=== PATIENT | female | born 1995 | race Caucasian/White ===

== ENCOUNTER 2021-07-18 21:02 | Emergency (ER) | payer SELFPAY ==
[2021-07-18 21:06] VITALS: BP 144/67; PULSE 95; RESP 16; TEMP 36.3; O2SAT 99
--- NOTE | 2021-07-18 21:26 | ED.GENADUL_ITS ---
Discharge Plan Disposition Patient Disposition: HOME Condition: Stable Discharge Details Clinical Impression: Nausea vomiting and diarrhea Primary Care Provider: None,None ED Provider: Oneal Resendiz Home Meds and New Rx's Prescriptions: New ondansetron 4 mg tablet,disintegrating 4 mg PO Q8H PRN (Reason: nausea and vomiting) Qty: 30 0RF Discharge Instructions Instructions: Acute Nausea and Vomiting (ED) Additional Instructions: you are likely suffering froma stomache virus that will resolve in a few days take small frequent sips of water to stay hydrated if you develop persistent vomit despite the medication, severe pain or feel more ill return to the emergency department Medical Decision Making 25 yo female who denies chronic medical problems, denies alcohol or drug use, comes in with n/v and diarrhea starting this morning. She denies any recent travel, new foods, fevers, chills. She has had abdominal cramping as well but denies pain. She arrives stable speaking in full sentences. She has a soft nontender abdomen on exam. Given the n/v with diarrhea suspect food related illness vs viral gastroenteritis, given lack of tenderness on exam doubt surgical pathology such as sbo and do not feel abdominal imaging indicated. Will treat her symptoms with zofran and give fluids and check for electrolyte abnorm alities and reassess. Patient with mild leukocytosis, no significant electrolyte abnormality. She is feeling significantly better and still has no abdominal tenderness so do not feel ct imaging indicated. She is tolerating po now and feels well enough for discharge and is stable for discharge. Will provide prn zofran and return precautions given Differential Diagnosis Differential Diagnosis: food illness, gastroenteritis Lab Data Lab results reviewed: Yes I reviewed the patient's lab results. HPI General Mode of arrival: ambulatory . Date/Time Provider Initiated Documentation: 07/18/21 21:08 . Limitations to Documentation: no limitations . Information obtained by: patient . History of Present Illness 25 year old F presents to the emergency department with the chief complaint of n/v, described as moderate, Patient started experiencing this day(s) (1) and it has been intermittent. improves with No relieving factors improve symptom(s), No exacerbating factors reported . Patient notes other (diarrhea). Patient did receive the following treatments prior to arrival, none Related Data Home Medications Medication Instructions Recorded Confirmed ondansetron 4 mg disintegrating 4 mg PO Q8H PRN #30 tab 07/18/21 tablet Previous Rx's Medication Instructions Recorded ondansetron 4 mg disintegrating 4 mg PO Q8H PRN #30 tab 07/18/21 tablet Allergies Allergy/AdvReac Type Severity Reaction Status Date / Time No Known Allergies Allergy Unverified 07/18/21 21:08 General Stated Complaint: Nausea/Vomit/Diar MANFRED: 3 Review of Systems All systems reviewed & are unremarkable except as noted in HPI and below Constitutional Constitutional: Denies chills, Denies fever(s) and Denies weakness Cardiovascular Cardiovascular: Denies chest pain and Denies dyspnea Respiratory Respiratory: Denies cough and Denies dyspnea Gastrointestinal Gastrointestinal: Denies abdominal pain Genitourinary Genitourinary: Denies dysuria Integumentary/Breasts Skin/Breast: Denies rash Neurologic Neurologic: Denies weakness Psychiatric Psychiatric: Denies depression PFSH All Active Problems (Updated 07/18/21 @ 22:54 by Oneal Resendiz MD) Pharyngitis, acute (Acute) Nausea vomiting and diarrhea (Acute) Social History Smoking/Tobacco Use Status: Never Smoking risk assessment performed?: Yes Alcohol Intake: never Drug use: Never Substance use type: does not use Do you feel safe at home: Yes Do you feel safe in your relationship?: Yes Exam Const General: no acute distress Orientation: alert HENMT Head: normal to inspection Ears: external ears normal General nose exam: external nose normal Mouth: moist mucous membranes Eyes General: appearance normal, both eyes and all related structures Neck Neck: normal visual inspection Resp Effort & Inspection: normal respiratory effort and able to speak in complete sentences Cardio Rate: regular rate GI Palpation: soft and nontender Skin General skin exam: no rashes or lesions noted Neuro General: patient alert and patient oriented x3 Extrem General: normal to inspection Psych Mental Status: mental status grossly normal Course Vital Signs Vital signs: Vital Signs Temperature 36.3 C L 07/18/21 21:06 Pulse 95 H 07/18/21 21:06 Respiratory Rate 16 07/18/21 21:06 Blood Pressure 144/67 H 07/18/21 21:06 Pulse Oximetry 99 07/18/21 21:06 Temperature 36.3 C L 07/18/21 21:06 Pulse 95 H 07/18/21 21:06 Respiratory Rate 16 07/18/21 21:06 Respiratory Effort Non-Labored 03/27/22 21:09 Blood Pressure 144/67 H 07/18/21 21:06 Pulse Oximetry 99 07/18/21 21:06 Pain Level 6 07/18/21 21:06
[2021-07-18] MEDS: Normal Saline 1,000 ML 1000 ML IV (21:40)
[2021-07-18] MEDS: Ondansetron 4 MG/2 ML VIAL IVP (21:41)
[2021-07-18 21:47] LABS: Bilirubin Small (Negative); Blood Moderate (Negative); Clarity Sl Cloudy (Clear); Glucose Negative (Negative); Ketones 80 mg/dL (Negative); Leukocyte Esterase Negative (Negative); Nitrite Negative (Negative); Specific Gravity >= 1.030 (1.005-1.025); Urobilinogen 0.2 EU/dL (Up TO 0.2); pH 5.5 (5-8)
[2021-07-18 21:48] LABS: Abs Immature Grans 0.03 10^3/uL (0.0-0.06); Absolute Eosinophil Count 0.01 10^3/uL (0.0-0.7); Absolute Monocyte Count 0.79 10^3/uL (0.1-0.8); Basophils % 0.5; Eosinophils % 0.1; HCT 48.1 % (36.0-46.0); HGB 16.9 g/dL (11.2-15.7); Immature Grans % 0.2; Lymphocytes % 6.2; MCH 31.8 pg (27.0-33.0); MCHC 35.1 % (32.0-36.0); MCV 90.6 fL (80-95); MPV 11.3 fL (8.0-11.0); Monocytes % 6.1; Neutrophils % 86.9; Nucleated RBC 0 %; Platelet Count 245 10^3/uL (130-400); RBC 5.31 10^6/uL (3.93-5.22); RDW 11.2 % (11.7-14.6); RDW-SD 37.5 fL; WBC 12.87 10^3/uL (4.4-10.8)
[2021-07-18 21:51] LABS: Absolute Basophil Count 0.06 10^3/uL (0.0-0.2); Absolute Neutrophil Count 11.18 10^3/uL (1.2-6.7)
[2021-07-18 22:02] LABS: Bacteria Moderate HPF (Negative); C & S Indicated? No/Sq. Contamination; Casts Negative LPF (Negative); Crystals Negative HPF (Negative); Epithelial Cells Many HPF (Negative); Mucus Moderate (Negative); WBC 0-2 HPF (0-5)
[2021-07-18 22:03] LABS: ALT 22 U/L (14-59); AST 16 U/L (15-37); Albumin 5.3 g/dL (3.4-5.0); Alkaline Phosphatase 73 U/L (46-116); Anion Gap 12.2 mmol/L (3-11); BUN 12 mg/dL (7-18); Bilirubin, Total 1.3 mg/dL (0.2-1.0); CO2 25.8 mmol/L (21.0-32.0); CREATININE 0.9 mg/dL (0.55-1.02); Calcium 9.4 mg/dL (8.5-10.1); Chloride 105 mmol/L (98-107); Glucose 113 mg/dL (74-106); Lipase 51 U/L (73-393); Potassium 4.3 mmol/L (3.5-5.1); Sodium 143 mmol/L (136-145); Total Protein 8.6 g/dL (6.4-8.2)
[2021-07-18 23:26] VITALS: BP 114/65; PULSE 78; RESP 14; TEMP 36.7; O2SAT 97
[2021-07-18] MEDS: Ondansetron O.D.T. 4 MG TABEF, 3 TABS/BTL PO (23:26)
== END 2021-07-18 23:40 | disposition home or self-care (01) ==
PROVIDERS: Emergency Provider Emergency Medicine
DX: R11.2 Nausea with vomiting, unspecified (principal); R19.7 Diarrhea, unspecified
CPT/HCPCS: 80053; 81025; 83690; 96361; 96374; 99284; 81003; 81015; 83735; 85025; 99283; J2405

== ENCOUNTER 2022-03-15 02:50 | Outpatient (CLI) | payer MEDICAID, SELFPAY ==
--- NOTE | 2022-03-15 11:00 | PAPFT_PTH ---
PATIENT: Last Newell LOC: [facility] U#:[id number] AGE/SX: 26/F ROOM: RE03/15/[address]: Lorena Rice CNM : 1995 BED: DIS: 03/15/2022 SPEC #: [id number] RECD: 03/15/22 13:04 STATUS: LARISSA OSULLIVAN #: [id number] SUSANNAH: 03/15/22 11:[address]: Lorena Rice DEPT: [facility], [facility] Cytology RECD BY: Stacy Ferreira ENTERED: 03/15/22 13:04 SP TYPE: PAPFT FLO DR: None Tissues: 1 - CX/ENDOCX FOR PAP SMEARS Procedures: PAP THIN PREP/[facility] Screening Comments: [id number] (CHLAMYDIA/GC)
[2022-03-15 12:10] LABS: Panorama Kit Sent via Fed Ex
[2022-03-15 12:27] LABS: Abs Immature Grans 0.05 10^3/uL (0.0-0.06); Absolute Basophil Count 0.05 10^3/uL (0.0-0.2); Absolute Eosinophil Count 0.13 10^3/uL (0.0-0.7); Absolute Monocyte Count 0.73 10^3/uL (0.1-0.8); Basophils % 0.4; Eosinophils % 1.1; HCT 39.3 % (36.0-46.0); HGB 13.9 g/dL (11.2-15.7); Immature Grans % 0.4; Lymphocytes % 15.2; MCH 32.7 pg (27.0-33.0); MCHC 35.4 % (32.0-36.0); MCV 93 fL (80-95); MPV 10.5 fL (8.0-11.0); Neutrophils % 76.9; Platelet Count 259 10^3/uL (130-400); RBC 4.25 10^6/uL (3.93-5.22); RDW 11.8 % (11.7-14.6); RDW-SD 39.7 fL; WBC 12.21 10^3/uL (4.4-10.8)
[2022-03-15 12:32] LABS: Absolute Lymphocyte Count 1.86 10^3/uL (1.2-3.4); Absolute Neutrophil Count 9.39 10^3/uL (1.2-6.7)
[2022-03-16 09:24] LABS: Hepatitis B Surface Ag Negative (Negative)
[2022-03-16 09:51] LABS: HIV-1/2 Ag & Ab Screen Negative (Negative)
[2022-03-16 10:11] LABS: Hepatitis C Ab w Rflx HCV PCR Negative (Negative)
[2022-03-16 10:42] LABS: Varicella IgG Antibody Positive (See Note)
[2022-03-16 10:46] LABS: Rubella IgG Ab (UVM) Positive (See Note)
[2022-03-17 14:40] LABS: Chlamydia Result Negative (Negative); GC Result Negative (Negative)
[2022-03-18 14:38] LABS: Syphilis IgG w/Reflex Nonreactive (Nonreactive)
[2022-04-19 17:20] LABS: Result Summary NEGATIVE; Specimen WB Whole Blood
== END 2022-03-15 02:51 | disposition home or self-care (01) ==
PROVIDERS: Visit Provider Advanced Practice Midwife
DX: Z34.91 Encounter for supervision of normal pregnancy, unspecified, first trimester (principal); Z36.89 Encounter for other specified antenatal screening; Z3A.11 11 weeks gestation of pregnancy; Z12.4 Encounter for screening for malignant neoplasm of cervix
CPT/HCPCS: 36415; 81220; 81222; 86787; 86803; 86850; 86900; 86901; 87340; 87389; 87491; 87591; 88142; 85025; 86762; 86780

== ENCOUNTER 2022-03-15 13:00 | Outpatient (REF) | payer MEDICAID, SELFPAY ==
--- OUTSIDE RECORDS SUMMARY | 2022-03-15 13:13 | XMS_ITS | Clinical Summary ---
:1995 Demographics Home Phone Preferred Language Unknown Marital Status Unknown Pentecostalism Affiliation Unknown Race Unknown Ethnic Group Unknown Author Organization [facility] Address [address] [place] [id number] Care Team Providers Name Role Phone Unavailable Primary Care Provider Unavailable Encounters Date Type Specialty Care Team Description 03/15/2022 Lab Requisition Clinical Laboratory Outr Resulting Lab , Provider from Last 3 Months Social History Tobacco Use Types Packs/Day Years Used Date Smoking Tobacco: Never Assessed Sex Assigned at Date Recorded Not on file Plan of Treatment Not on file
--- OUTSIDE RECORDS SUMMARY | 2022-03-15 13:13 | XMS_ITS | Encounter Summary ---
:1995 Demographics Home Phone Preferred Language Unknown Marital Status Unknown Anabaptist Affiliation Unknown Race Unknown Ethnic Group Unknown Author Organization [facility] Address [address] [place] [address] Care Team Providers Name Role Phone Unavailable Primary Care Provider Unavailable Encounter Details Date Type Department Care Team Description 03/15/2022 Lab Requisition [facility] Outr Resulting Lab, Pathology & Laboratory Provider [facility] [address] [place] [address] Social History Tobacco Use Types Packs/Day Years Used Date Smoking Tobacco: Never Assessed Sex Assigned at Date Recorded Not on file documented as of this encounter Plan of Treatment Scheduled Orders Name Type Priority Associated Diagnoses Order S chedule CHLAMYDIA/N. Microbiology Routine Ordered: 2021 GONORRHOEAE AMPLIFIED RNA, THINPREP documented as of this encounter Visit Diagnoses Not on filedocumented in this encounter
[2022-03-15 14:44] LABS: *AMPHETAMINES SCREEN URINE Negative (Negative); *BARBITURATES SCREEN URINE Negative (Negative); *BENZODIAZEPINES SCREEN URINE Negative (Negative); Cannabinoids THC Negative (Negative); Cocaine Screen,Urine Negative (Negative); METHADONE URINE SCREEN Negative (Negative); OPIATES URINE SCREEN Negative (Negative)
[2022-03-15 14:47] LABS: Tricyclic Antidepressants Negative (Negative)
[2022-03-23 10:41] LABS: Buprenorphine Negative ng/mL (Cutoff: 5.0); Norbuprenorphine Negative ng/mL (Cutoff: 2.5)
== END 2022-03-15 13:01 | disposition home or self-care (01) ==
LOC: LBN 13:00
PROVIDERS: Visit Provider Advanced Practice Midwife
DX: Z34.91 Encounter for supervision of normal pregnancy, unspecified, first trimester (principal); Z3A.11 11 weeks gestation of pregnancy
CPT/HCPCS: 80307; 80348; 87086

== ENCOUNTER 2022-05-31 02:43 | Outpatient (CLI) | payer MEDICAID, SELFPAY ==
--- NOTE | 2022-05-31 06:34 | DI.US_ITS ---
Exam(s) US OB 2-3 TRIMESTER EXAM: US OB 2-3 TRIMESTER CLINICAL HISTORY: 18 wk anatomy survey,z34.90. TECHNIQUE: Transabdominal obstetrical ultrasound was performed. COMPARISON: US POCUS EXAM from 02/21/2022 FINDINGS: There is a single viable intrauterine gestation with cardiac activity identified- bpm. Amniotic fluid: There is a normal amount of amniotic fluid. Placental location: The placenta is posterior grade 1,with no evidence of placenta previa.The distanc e from the tip of the placenta to the internal cervical os is 6 cm. ANATOMY: A 3 vessel umbilical cord is seen. A four-chamber cardiac view was obtained. Right and left ventricular outflow tracts were imaged. There are no obvious abnormalities of the spinal column evident. There is no obvious abnormal ity of the anterior abdominal wall. stomach and urinary bladder are identified and there is no evidence of hydronephrosis. No abnormalities of the upper lip region are identified. No evidence of choroid plexus cysts i n the brain. Dating parameters place this at approximately 23 weeks gestational age. BPD measures 22 weeks and 5 days HC measures 22 weeks and 6 days AC measures 24 weeks and 0 days FL measures 22 weeks and 3 days Estimated weight is 575 gm-1 pound 4 ounces Fetus is at the 69th percentile on the Hadlock scale. IMPRESSION:: Single viable intrauterine gestation which is approximately 23 weeks gestational age, i mplying an CHELSEY of September 27, 2022. There are no obvious anomalies evident on today's study. The placenta is posterior with no evidence of placenta previa. There is a normal amount of amniotic fluid. DATA REPOSITORY:
== END 2022-05-31 03:03 ==
LOC: DI 02:43
PROVIDERS: Visit Provider Advanced Practice Midwife
DX: Z34.92 Encounter for supervision of normal pregnancy, unspecified, second trimester (principal)
CPT/HCPCS: 76805

== ENCOUNTER 2022-06-27 15:12 | Emergency (ER) | payer MEDICAID, SELFPAY ==
[2022-06-27 15:26] VITALS: BP 123/70; PULSE 97; RESP 18; TEMP 37; O2SAT 98
--- NOTE | 2022-06-27 15:47 | W.ED.GENAD ---
Discharge Plan Disposition Patient Disposition: Home Condition: Stable Discharge Details Clinical Impression: Pharyngitis, acute ED Provider: Marisol Workman Home Meds and New Rx's Prescriptions: Continued prenat.vits,minesh,[id number] Tablet 1 tab PO DAILY ferrous sulfate [Feosol] 325 mg (65 mg iron) tablet 325 mg PO DAILY Qty: 90 6RF Discharge Instructions Instructions: Pharyngitis (ED) Additional Instructions: Drink 6 to 8 glasses or more water daily to stay well-hydrated Can gargle with salt water 1 teaspoon dissolved in 1 quart of warm water several times daily for symptom management Referrals: Practice Provider [Provider Group] (Your [facility] provider as scheduled, Call sooner for new or worsening symptoms) Discharge Data Discharge Date/Time-TO BE ENTERED AT DEPARTURE: 06/27/22 17:34 Medical Decision Making <Marisol Workman NP - Last Filed: 06/27/22 21:45> rapid strep ordered And is negative for strep. Patient's physical exam and vital signs are unremarkable. Tolerating good fluids. She is stable and can be discharged home with symptom management and routine follow-up with primary care as needed <Consuelo Song DO - Last Filed: 07/05/22 00:28> rapid strep ordered And is negative for strep. Patient's physical exam and vital signs are unremarkable. Tolerating good fluids. She is stable and can be discharged home with symptom management and routine follow-up with primary care as needed Attending physician note: Patient not seen or examined by me but I was available for consult if needed. Consuelo Song DO HPI <Marisol Workman NP - Last Filed: 06/27/22 21:45> General Mode of arrival: ambulatory. Date/Time Provider Initiated Documentation: 06/27/22 15:42. Limitations to Documentation: no limitations. Information obtained by: patient. HPI Narrative: Presents for evaluation of sore throat. No cough fever or ear pain. No difficulty swallowing. Has had similar symptoms in the past associated with strep throat. She is 7 months and has felt normal movement she has had no abdominal pain discharge again has been eating and drinking and bowels and bladder functioning normally Related Data Home Medications Medication Instructions Recorded Confirmed prenat.vits,minesh,[id number] 1 tab PO DAILY 02/04/22 06/27/22 ferrous sulfate 325 mg (65 mg 325 mg PO DAILY #90 tabs 05/10/22 06/27/22 iron) tablet (Feosol) Previous Rx's Medication Instructions Recorded ferrous sulfate 325 mg (65 mg 325 mg PO DAILY #90 tabs 05/10/22 iron) tablet (Feosol) Allergies Allergy/AdvReac Type Severity Reaction Status Date / Time soap Allergy Hives Verified 06/27/22 15:29 General Stated Complaint: Sorethroat MANFRED: 4 Review of Systems <Marisol Workman NP - Last Filed: 06/27/22 21:45> All systems reviewed & are unremarkable except as noted in HPI and below Constitutional Constitutional: Denies headache(s) and Reports lethargy ENT Ears, Nose, Mouth, and Throat: Denies headache(s) Neurologic Neurologic: Denies headache(s) PFSH <Marisol Workman NP - Last Filed: 06/27/22 21:45> All Active Problems (Updated 06/27/22 @ 16:51 by Marisol Workman NP) Former tobacco use (Acute) vaping. Quit with (Acute) Pharyngitis, acute (Acute) Family History (Updated 02/04/22 @ 13:26 by Marianela Apple CNM) Maternal Aunt Breast cancer Maternal Grandmother Ovarian cancer Social History Smoking/Tobacco Use Status: Never Smoking risk assessment performed?: Yes Alcohol Intake: never Drug use: Never Substance use type: does not use Do you feel safe at home: Yes Do you feel safe in your relationship?: Yes History History 1 Para 0 Hx # Term Pregnancies 0 Multiple births 0 Hx # Pregnancies 0 Ectopic pregnancies 0 AB induced 0 Hx Number of Living Children 0 AB spontaneous 0 Course <Marisol Workman NP - Last Filed: 06/27/22 21:45> Vital Signs Vital signs: Vital Signs Temperature 37.0 C 06/27/22 15:26 Pulse 97 H 06/27/22 15:26 Respiratory Rate 18 06/27/22 15:26 Blood Pressure 123/70 06/27/22 15:26 Pulse Oximetry 98 06/27/22 15:26 Temperature 37.0 C 06/27/22 15:26 Pulse 97 H 06/27/22 15:26 Respiratory Rate 18 06/27/22 15:26 Respiratory Effort Normal 06/27/22 15:30 Blood Pressure 123/70 06/27/22 15:26 Blood Pressure Position Sitting 06/27/22 15:26 Pulse Oximetry 98 06/27/22 15:26 Oxygen Delivery Method Room Air 06/27/22 15:26 Oxygen Flow Rate 0 06/27/22 15:26 Pain Level 1 06/27/22 15:26
== END 2022-06-27 17:34 | disposition home or self-care (01) ==
PROVIDERS: Emergency Provider Nurse Practitioner Acute Care
DX: J02.9 Acute pharyngitis, unspecified (principal); Z33.1 Pregnant state, incidental
CPT/HCPCS: 87880; 99282; 87081

== ENCOUNTER 2022-07-05 02:29 | Outpatient (CLI) | payer MEDICAID, SELFPAY ==
[2022-07-05 10:12] LABS: HCT 39.4 % (36.0-46.0); HGB 13.7 g/dL (11.2-15.7); MCH 33.1 pg (27.0-33.0); MCHC 34.8 % (32.0-36.0); MCV 95 fL (80-95); MPV 10.2 fL (8.0-11.0); Platelet Count 248 10^3/uL (130-400); RBC 4.14 10^6/uL (3.93-5.22); RDW 11.8 % (11.7-14.6); RDW-SD 40.9 fL; WBC 12.11 10^3/uL (4.4-10.8)
[2022-07-05 11:11] LABS: Glucose,1 Hr (Glucola) 98 mg/dL (80-140)
== END 2022-07-05 02:30 | disposition home or self-care (01) ==
LOC: LBO 02:30
PROVIDERS: Visit Provider Advanced Practice Midwife
DX: Z34.92 Encounter for supervision of normal pregnancy, unspecified, second trimester (principal); Z3A.27 27 weeks gestation of pregnancy
CPT/HCPCS: 36415; 82950; 85027

== ENCOUNTER 2022-09-05 09:35 | Outpatient (REF) | payer MEDICAID, SELFPAY ==
[2022-09-05 10:38] LABS: *AMPHETAMINES SCREEN URINE Negative (Negative); *BARBITURATES SCREEN URINE Negative (Negative); *BENZODIAZEPINES SCREEN URINE Negative (Negative); Cannabinoids THC Negative (Negative); Cocaine Screen,Urine Negative (Negative); METHADONE URINE SCREEN Negative (Negative); OPIATES URINE SCREEN Negative (Negative); Tricyclic Antidepressants Negative (Negative)
== END 2022-09-05 09:36 | disposition home or self-care (01) ==
LOC: LBN 09:35
PROVIDERS: Visit Provider Advanced Practice Midwife
DX: Z34.93 Encounter for supervision of normal pregnancy, unspecified, third trimester (principal); Z36.85 Encounter for antenatal screening for Streptococcus B; Z3A.36 36 weeks gestation of pregnancy
CPT/HCPCS: 80307; 87081

== ENCOUNTER 2022-09-07 19:42 | Outpatient (CLI) | payer MEDICAID, SELFPAY ==
[2022-09-07 20:10] VITALS: BP 116/69; PULSE 75; RESP 18; TEMP 36.5
[2022-09-07 20:13] VITALS: BP 116/69; PULSE 75; TEMP 207.9; TEMP 97.7
[2022-09-07 21:08] VITALS: BP 116/69; PULSE 75; TEMP 207.9; TEMP 97.7
--- NOTE | 2022-09-07 21:08 | W.OBNST ---
Date of service: 09/07/22 Time of Service: 21:08 NST Evaluation Reason for NST Reasons for Nonstress Test: DECREASED MOVEMENT Gestational Age Gestational Age in Weeks and Days: 36 Weeks and 6Days Test and Monitor Explained Test/Monitor Explained: Test Explained, Monitor Explained and Patient Verbalized Understanding Vital Signs Blood Pressure: 116/69 Pulse: 75 Temperature: 207.9 F Urine Results Urine Protein: Negative Urine Ketones: Negative Urine Glucose: Negative Urine Blood: Negative NST Information Date on Monitor: 09/07/22 Time on Monitor: 19:33 Date off Monitor: 09/07/22 Time off Monitor: 20:25 Total Time on Monitor: 52 NST Interventions: PO Hydration NST Evaluation Patient States Movement: Present FHR Baseline: 130 Variability: Moderate 6-25 bpm Accelerations: 15x15 Decelerations: None NST Results: Reactive Note Ultrasound Done: N/A. NST Note NST Reviewed and Verified by: Lorena Rice
== END 2022-09-07 19:43 | disposition home or self-care (01) ==
PROVIDERS: Visit Provider Advanced Practice Midwife
DX: O36.8131 Decreased fetal movements, third trimester, fetus 1 (principal); Z3A.36 36 weeks gestation of pregnancy
CPT/HCPCS: 59025

== ENCOUNTER 2022-09-19 20:49 | Outpatient (CLI) | payer MEDICAID, SELFPAY ==
[2022-09-19 21:34] VITALS: BP 120/77; PULSE 79; RESP 18; TEMP 36.6
[2022-09-19 21:48] VITALS: BP 120/77; PULSE 79; TEMP 208.2; TEMP 97.9
[2022-09-19 21:59] LABS: ROM Plus Negative
--- NOTE | 2022-09-19 22:17 | W.OBNST ---
Date of service: 09/19/22 Time of Service: 22:00 NST Evaluation Reason for NST Reasons for Nonstress Test: OTHER, SEE COMMENT Reason for NST Other: question ruptured membranes Gestational Age Gestational Age in Weeks and Days: 38 Weeks and 4Days Test and Monitor Explained Test/Monitor Explained: Test Explained, Monitor Explained and Patient Verbalized Understanding Vital Signs Blood Pressure: 120/77 Pulse: 79 Temperature: 208.2 F NST Information Date on Monitor: 09/19/22 Time on Monitor: 21:26 Date off Monitor: 09/19/22 Time off Monitor: 22:00 Total Time on Monitor: 34 NST Interventions: PO Hydration Contraction Frequency: irregular and mild NST Evaluation Patient States Movement: Present FHR Baseline: 120 Variability: Moderate 6-25 bpm Accelerations: 15x15 NST Results: Reactive Note Ultrasound Done: N/A. NST Note Note: NST is reactive and reassuring. ROM plus is negative. Has office appointment tomorrow. Discharged to home. SHEREEN NST Reviewed and Verified by: Marianela Rios
[2022-09-19 22:18] VITALS: BP 120/77; PULSE 79; TEMP 208.2; TEMP 97.9
== END 2022-09-19 22:02 | disposition home or self-care (01) ==
LOC: BCD 20:54 → OBS 21:35
PROVIDERS: Visit Provider Advanced Practice Midwife
DX: O47.1 False labor at or after 37 completed weeks of gestation (principal); Z3A.38 38 weeks gestation of pregnancy
CPT/HCPCS: 84112; 59025

== ENCOUNTER 2022-09-25 18:27 | Outpatient (CLI) | payer MEDICAID, SELFPAY ==
[2022-09-25 19:33] VITALS: BP 118/63; PULSE 69; TEMP 37.1
[2022-09-25 19:35] VITALS: BP 118/63; PULSE 69; TEMP 37.1
[2022-09-25 20:05] LABS: ROM Plus Negative
--- NOTE | 2022-10-11 10:41 | W.OBNST ---
Date of service: 09/25/22 Time of Service: 21:00 NST Evaluation Reason for NST Reasons for Nonstress Test: OTHER, SEE COMMENT Reason for NST Other: Rule out labor Gestational Age Gestational Age in Weeks and Days: 40 Weeks and 3Days Test and Monitor Explained Test/Monitor Explained: Test Explained, Monitor Explained and Patient Verbalized Understanding Vital Signs Blood Pressure: 118/63 Pulse: 69 Temperature: 98.8 F Urine Results Urine Protein: Negative Urine Ketones: Negative Urine Glucose: Negative Urine Blood: Negative NST Information Date on Monitor: 09/25/22 Time on Monitor: 19:30 Date off Monitor: 09/25/22 Time off Monitor: 20:35 Total Time on Monitor: 65 NST Interventions: PO Hydration NST Evaluation Patient States Movement: Present FHR Baseline: 135 Variability: Moderate 6-25 bpm Accelerations: 15x15 Decelerations: None NST Results: Reactive Note Ultrasound Done: N/A. NST Note Note: Last came in with a report of regular contractions at home. When she arrived at the Center there was no evidence of active labor. cervical check was deferred. Signs of labor reviewed. NST Reviewed and Verified by: Marianela Apple
[2022-10-11 10:42] VITALS: BP 118/63; PULSE 69; TEMP 37.1
== END 2022-09-25 20:39 | disposition home or self-care (01) ==
LOC: BCD 18:31 → OBS 18:45
PROVIDERS: Referring Provider Advanced Practice Midwife; Visit Provider Advanced Practice Midwife
DX: O47.1 False labor at or after 37 completed weeks of gestation (principal); Z3A.39 39 weeks gestation of pregnancy
CPT/HCPCS: 84112; 59025

== ENCOUNTER 2022-10-02 06:12 | Inpatient (IN) | payer MEDICAID, SELFPAY ==
[2022-10-02] VITALS (13 sets, daily range): BP systolic 101–138; BP diastolic 59–86; PULSE 67–105; RESP 18; TEMP 36.2–37.1
--- NOTE | 2022-10-02 06:14 | W.PM.OBHPL1 ---
Date of service: 10/02/22 Time of Service: 06:14 Assessment and Plan Assessment and plan (1) Encounter for vaginal delivery: Status: Acute Assessment and plan: A: 27 yo G1 @ 39+6 wks, Spontaneous active labor, coping well GBS neg, Rh+, benign AP course Moderate risk for SD d/t primipara w/TWG >50 lb EFW 3750 gm, Category 1 tracing P: Admit to BC, CBC, T&S Expectant management, intermittent auscultation Anticipate OB-HPI Labor/Delivery History of Present Illness Reason for Visit: RULE OUT LABOR Chief Complaint: Uterine Contractions (been up with contractions since 229, they have become increasingly painful and she has seen blood tinged mucous a few times. No ROM, no vomiting, no diarrhea.). CHELSEY Calculator Estimated Delivery Date Method Current WG Current Estimate 10/03/22 LMP (Certain) 39w 6d Other Estimates 10/02/22 Ultrasound #1 40w 0d History of Present Expected Delivery Route/Plan - CNM FOB/geri - [place] New (first child) BB - Peter yes to circ Wants to use the tub for labor, maybe team FOB and sister Jaqui, attended childbirth class GBS negative Specific Issues/Plan 1. cfDNA- WNL and CF (neg) 2. Tdap done 07/05/22 3. Receiving home health nursing visits. Assessment: History Reviewed & Current Review of Systems Narrative: ROS noncontributory other then HPI PFSH All Active Problems (Updated 10/02/22 @ 06:24 by Lorena Rice) Encounter for vaginal delivery (Acute) Former tobacco use (Acute) vaping. Quit with (Acute) Medical History (Updated 10/02/22 @ 06:24 by Lorena Rice) Pharyngitis, acute Family History (Updated 02/04/22 @ 13:26 by Marianela Apple CNM) Maternal Aunt Breast cancer Maternal Grandmother Ovarian cancer Social History Smoking/Tobacco Use Status: Former Tobacco Use Smoking risk assessment performed?: Yes Alcohol Intake: never Drug use: Never Substance use type: does not use Do you feel safe at home: Yes Do you feel safe in your relationship?: Yes History History 1 Para 0 Hx # Term Pregnancies 0 Multiple births 0 Hx # Pregnancies 0 Ectopic pregnancies 0 AB induced 0 Hx Number of Living Children 0 AB spontaneous 0 Meds Allergies and Home Medications Allergies Allergy/AdvReac Type Severity Reaction Status Date / Time soap Allergy Hives Verified 09/21/22 10:12 Home Medications Medication Instructions Recorded Confirmed Type prenat.vits,minesh,yau-[id number]-[id number] 1 tab PO DAILY 02/04/22 09/26/22 History valacyclovir 1 gram tablet 2,000 mg PO BID PRN cold sores 1 09/21/22 09/26/22 Rx (Valtrex) day #4 tabs Exam Physical Exam Vital signs: Temp Pulse Resp BP 98.7 F 82 18 126/78 10/02/22 06:05 10/02/22 06:05 10/02/22 06:05 10/02/22 06:05 Vital Signs Reviewed: Yes Constitutional Constitutional: mild distress, average body habitus and cooperative Detailed Labor and Delivery Exam Dilation: 6 Effacement (%): 100 station: -2 Position: CHAIM Cervix position: anterior Consistency: soft BACON Score(Cervical Ripeness Score): 11 Amniotic Membrane Status: Intact (large forebag palpable) Contraction Frequency(min): q4-5 Contraction Intensity: Moderate Fetus A Heart Rate Baseline: 140 Monitor Accelerations: Present Monitor Decelerations: None Variability: Moderate (6-25 BPM) Categories: Category I Est. Weight: 8 lb 4.277 oz Est. Weight: 3750 gms HEENT Exam HEENT Exam: Normal Neck Exam Neck Exam: Normal Chest/Brest/Axilla Exam Chest Exam: Normal Breast Exam Breast Exam: Not Done Respiratory Exam Respiratory Exam: Normal Cardiovascular Exam Cardiovascular Exam: Normal Abdominal Exam Abdominal Exam: Normal (gravid, nontender) Rectal Exam Rectal Exam: Normal Exam Exam: Normal Extremities Exam Extremities Exam: Normal Back/Spine/Pelvis Exam Back Exam: Normal Pelvis Adequate: Yes Skin Exam Skin Exam: Normal Neurological Exam Neurological Exam: Normal Psychiatric Exam Psychiatric Exam: Normal (happy, coping well) Results Results Group Beta Strep: Negative Blood Type: O+ Rubella Status: Immune Varicella Immunity: Immune Risk Assessment Risk for Shoulder Dystocia Historical/Initial OB: NEGATIVE FOR: Pelvic Abnormality, Pre- BMI>30, Previous Shoulder Dystocia or Previous Macrosomia 40 Weeks: POSTIVE FOR: Maternal Weight Gain >40lb; NEGATIVE FOR: EFW> 4500 gms or Post Dates Increased Risk?: Yes Counseling: primiparous status with >50 lb TWG, nml glucose testing Delivery Plan @ 36wks: Delivery Plan @ 40 wks: spont labor, Risk for Pre-Eclampsia Date Initiated/Initials: not indicated. JK Yes, if one or more: NEGATIVE FOR: Hx Pre-E/Gest HTN, Chronic HTN, Multiple Gestation, Pre-gestational DM, Renal Disease, Systemic Lupus or APA Syndrome Yes, if 2 or more: POSITIVE FOR: Nulliparity; NEGATIVE FOR: Age>= 35 yrs, >10yr btwn pregnancies, BMI>30, ethinicty, Mother/Sister w/ Pre-E or Previous IUGR Risk for Post- Hemorrhage Initial: NEGATIVE FOR: Multiple Gestation, Previous PPH, Known Clotting Deficiency, Grand Multiparity or Anticoagulation At Risk?: No Counseled re: Active Management: Yes Risks Reviewed Risks Reviewed Upon Admission: Yes
[2022-10-02 06:42] LABS: HCT 37.2 % (36.0-46.0); HGB 13.1 g/dL (11.2-15.7); MCH 32.5 pg (27.0-33.0); MCHC 35.2 % (32.0-36.0); MCV 92 fL (80-95); MPV 10.8 fL (8.0-11.0); Platelet Count 257 10^3/uL (130-400); RBC 4.03 10^6/uL (3.93-5.22); RDW 11.6 % (11.7-14.6); RDW-SD 39.2 fL; WBC 18.53 10^3/uL (4.4-10.8)
--- NOTE | 2022-10-02 09:32 | W.PM.OBNL1 ---
Date of service: 10/02/22 Time of Service: 09:33 Pelvic Exam Dilation: 9 station: -1 Contractions Monitor Mode: Palpation Contraction Frequency(min): q2-4 Intensity: Moderate/Strong Fetus A Monitor: Doppler Heart Rate Baseline: 130 FHR Rhythm: Regular Characteristics: Normal Decelerations: None Amniotic Membrane Status: Ruptured Rupture Method: Artifical Amniotic Fluid: Clear Amount: moderate Date of Membrane Rupture: 10/02/22 Time of Membrane Rupture: 09:26 Assessment and Plan Assessment and plan (1) Encounter for vaginal delivery: Status: Acute Assessment and plan: A: Primipara in active labor P: AROM done for clear fluid, Continue expectant management Anticipate Objective Abnormal lab results 10/02/22 Range/Units 06:35 WBC 18.53 H (4.4-10.8) 10^3/uL RDW 11.6 L (11.7-14.6) % Temp Pulse Resp BP 98.3 F 67 18 128/86 10/02/22 06:21 10/02/22 07:55 10/02/22 06:21 10/02/22 07:55 Laboratory Results WBC 18.53 10^3/uL (4.4-10.8) H 10/02/22 06:35 RBC 4.03 10^6/uL (3.93-5.22) 10/02/22 06:35 Hgb 13.1 g/dL (11.2-15.7) 10/02/22 06:35 Hct 37.2 % (36.0-46.0) 10/02/22 06:35 MCV 92 fL (80-95) 10/02/22 06:35 MCH 32.5 pg (27.0-33.0) 10/02/22 06:35 MCHC 35.2 % (32.0-36.0) 10/02/22 06:35 RDW 11.6 % (11.7-14.6) L 10/02/22 06:35 Plt Count 257 10^3/uL (130-400) 10/02/22 06:35 MPV 10.8 fL (8.0-11.0) 10/02/22 06:35 Patient ABO/Rh O Positive 10/02/22 06:35 Antibody Screen NEGATIVE 10/02/22 06:35 Subjective Interval history since last seen: Increasing pelvic and rectal pressure
[2022-10-02] MEDS: Oxytocin 10 UNITS/ML VIAL IM (11:30)
[2022-10-02] MEDS: Benzocaine 20% 60 ML CAN (11:30)
--- NOTE | 2022-10-02 12:08 | OBVDS_ITS ---
Date of service: 10/02/22 Time of Service: 12:08 OB Labor/ Delivery Information Baby A Delivery Delivery Method: Spontaneaous Presentation: Cephalic Cephalic Position: Vertex Vertex Position: Left Occipital Anterior Breech Position: N/A Cord Description-Baby A: 3 Vessels Amniotic Fluid: Clear Estimated Blood Loss: 200 ml Delivery Outcome: Liveborn Transferred: Remains with Mother Note: At 9 cm dilation AROM performed for clear fluid, then pt entered tub, urges to push became stronger, 2nd stage huddle completed. FHT's per doppler remained 125-135. Anterior lip was persistent despite position changes until manually reduced during pushing efforts at +1 station. After 90 minutes in the tub, pt chose to return to the bed, a second 2nd stage huddle was completed, excellent maternal efforts resulted in over intact perineum of a vigorous male , anterior shoulder was snug fitting but quickly released with Olegario positioning, left nuchal hand noted, crying and pink infant immediately placed in mother's arms. Pitocin 10 units given IM, cord clamped and cut by FOB at 6-7 minutes, cord blood collected and Wilhelm placenta delivered intact with 3VC. Fundus firm and lochia minimal. Perineum intact, right labial laceration repaired using topical benzocaine 20% spray for anesthesia and 3.0 Vicryl suture, left periurethral/labial skid shannan was superficial and not bleeding, edges approximated with 3 stitches of 3.0 Vicryl. No clots on vaginal sweep, strong family bonding observed, apgars 8/9, weight 4175 gms. Providers Nurse Machine Precision Engraver: Lorena Rice Nurse: Torie Delgado Nurse: Diana Henely Labor/Delivery Information Number of Babies in Womb: 1 Steroids Given: None Reason Steroids Not Administered: N/A Group Beta Strep: Negative Antibiotics Administered: No Rubella Status: Immune Blood Type: O+ Varicella Immunity: Immune Shoulder Dystocia: No Stages of Labor Onset of Labor Date: 10/02/22 Onset of Labor Time: 01:00 Complete Dilatation Date: 10/02/22 Complete Dilatation Time: 10:07 Labor - Stage 1 Duration: 9 hours and 7 minutes ROM Baby A: 10/02/22 ROM Baby A: 09:26 ROM Total Time- Baby A: [id number] Infant Delivery Date-Baby A: 10/02/22 Delivery Time-Baby A: 11:28 Labor Stage 2 Duration: 1 hours and 21 minutes Placenta Delivery Date-Baby A: 10/02/22 Placenta Delivery Time-Baby A: 11:38 Labor-Stage 3 Duration: 10 minutes Total Length of Labor-Baby A: 10 hours and 28 minutes Placenta Status: Delivered Baby A Infant Gender: Male Gestational Status: Term (39-41.6 wks) Gestational Age in Weeks/Days: 39 Weeks and 6 Days weight: 9 lb 3.269 oz Weight Comment: 4175 gms Score-1 Minute Interval(Baby A) Heart Rate-1 minute: 100 BPM or Greater Respiratory Effort- 1 minute: Spontaneous/Strong Cry Muscle Tone-1 minute: Active Movement Reflex Response-1 minute: Prompt Response Color-1 minute: Pallor or Cyanosis Total Score-1 minute: 8 Score-5 Minute Interval(Baby A) Heart Rate- 5 minute: 100 BPM or Greater Respiratory Effort-5 minute: Spontaneous/Strong Cry Muscle Tone-5 minute: Active Movement Reflex Response-5 minute: Prompt Response Color-5 minute: Bluish Hands or Feet Total Score- 5 minute: 9 Procedure Procedures: Cord Blood Collection Interventions Repair of Laceration Type: Periurethral, Sponge Count Correct: Yes, Sharp Count Correct: Yes.
[2022-10-02] MEDS: Ibuprofen 600 MG TAB PO (12:57)
[2022-10-02] MEDS: Hamamelis Leaf/Glycerin 100 EACH BOX PR (12:58)
[2022-10-02] MEDS: Acetaminophen 325 MG TAB 650 MG PO ×2 (12:58→17:46)
[2022-10-02] MEDS: Dibucaine 1% 28 GM TUBE TP (12:58)
[2022-10-03] MEDS: Acetaminophen 325 MG TAB 650 MG PO ×2 (04:06→20:11)
[2022-10-03 07:45] VITALS: BP 113/67; PULSE 81; RESP 14; TEMP 36.7
--- NOTE | 2022-10-03 08:17 | W.PM.OBPNV1 ---
Date of service: 10/03/22 Time of Service: 08:00 Assessment and Plan Assessment and plan (1) care following vaginal delivery: Status: Acute Assessment and plan: 1. Continue present management 2. probable discharge later today if Pediatrics will allow baby to be discharged 3. Plans Paragard at 6 week PP visit (2) Lactating mother: Status: Acute Assessment and plan: 1. Will work with nursing staff or to develop good feeding plan prior to discharge and to ensure proper latch. Subjective Subjective Interval history: Last feels well. She is very happy with her experience. Is hoping to work with in relation to breast feeding. Would like to go home later today. [place] baby status: Doing well, Nursing well and Rooming in Exam Physical Exam Vital signs: Temp Pulse Resp BP 97.2 F L 78 18 108/62 10/02/22 19:40 10/02/22 19:40 10/02/22 19:40 10/02/22 19:40 Vital Signs Reviewed: Yes Constitutional Constitutional: no acute distress, average body habitus and cooperative HEENT Exam HEENT Exam: Normal Neck Exam Neck Exam: Normal (normal visual inspection) Respiratory Exam Respiratory Exam: Normal Cardiovascular Exam Cardiovascular Exam: Normal Abdominal Exam Abdomen: Other (normal exam) Fundal Exam Fundus: Below Umbilicus and Firm Comment: small lochia noted. Rectal Exam Rectal Exam: Not Done Exam Perineum: Normal and Repair Intact Extremities Exam Extremity Exam: Normal (denies calf tenderness) and Full ROM Back/Spine/Pelvis Exam Back Exam: Normal Skin Exam Skin Exam: Normal Neurological Exam Neurological Exam: Normal Psychiatric Exam Psychiatric Exam: Normal Results Hemoglobin/Hematocrit: Hgb 13.1 g/dL (11.2-15.7) 10/02/22 06:35 Hct 37.2 % (36.0-46.0) 10/02/22 06:35 Abnormal Lab Findings: Abnormal Labs 10/02/22 06:35 WBC 18.53 H RDW 11.6 L
[2022-10-03] MEDS: Dibucaine 1% 28 GM TUBE TP (17:05)
--- NOTE | 2022-10-03 19:10 | NUR.NOTE ---
Nursing Note: 1185 Report received from Starr MARROQUIN. Reviewed BF plan with Starr and POC for Discharge tomorrow.
[2022-10-03 20:00] VITALS: BP 119/72; PULSE 88; RESP 16; TEMP 36.9
[2022-10-03 20:11] VITALS: TEMP 36.9
[2022-10-03] MEDS: Ibuprofen 600 MG TAB PO (20:12)
--- NOTE | 2022-10-03 20:12 | NUR.NOTE ---
Nursing Note:Medications not scanned at bedside because [facility] not connecting to internet since earlier today
--- NOTE | 2022-10-03 20:13 | NUR.NOTE ---
Nursing Note: Pt appears happy, finished a BF session with supplemetation of EBM. reviewed POC for tonight with pt and SO, both agree. Appropriate questions being asked by both.FOB changed diaper and demonstrated circ care on baby. Pt reports mild nipple soreness, nipples appear intact. Nipple care teaching done. Pt pumped almost 20cc EBM after feeding.
--- NOTE | 2022-10-04 06:44 | W.PM.OBDISCH ---
Date of service: 10/04/22 Time of Service: 06:44 DS: Diagnosis Discharge Diagnosis (1) care following vaginal delivery: Status: Acute Asessment and Plan: 1. Normal PP course, will discharge to home with RX for Ibuprofen prn and to continue PNV (2) Lactating mother: Status: Acute Asessment and Plan: 1. Has worked with to ensure proper latch and feeding plan. 2. Will follow up with Pediatrics as scheduled. Discharge Plan Disposition Condition: Good Discharge Details Reason For Visit: Labor at Term Admit Date/Time: 10/02/22 06:12 Admit Provider: Lorena Rice Attending Provider: Lorena Rice Hospital Course Hospital Course: Vaginal delivery of live male on 10/02/22 who weighed 4175g with scores of 8&9. Normal PP course with 48 hour PP stay to help with breast feeding. Plans IUD at 6 week PP visit for contraception. Satisfactory condition. Home Meds and New Rx's Prescriptions: New ibuprofen 600 mg Tablet 600 mg PO Q6H PRN PRNQty: 90 0RF Continued prenat.vits,minesh,[id number] Tablet 1 tab PO DAILY Discontinued valacyclovir [Valtrex] 1 gram tablet 2,000 mg PO BID PRN (Reason: cold sores) 1 Days Qty: 4 2RF Patient Comments: Pt states she does not take. Discharge Instructions Instructions: Ibuprofen (By mouth), Depression (GEN), Intrauterine Device (GEN) Stand Alone Forms: BC Instructions, BC Post Vaginal Deliver Activity:: Activity as Tolerated Equipment/Supplies:: No Equipment Needed Diet:: As Tolerated OB:DS Summary Summary Vaginal Delivery Method: Spontaneaous Laceration Description: Periurethral Contraception Discussed Contraception Discussed: Yes Contraceptive Plan: IUD, Infant Gender-Baby A: Male weight: 9 lb 3.269 oz Status at Discharge Functional status at discharge: independent ambulation Overall status at discharge: patient is back to baseline Mental Status: mental status grossly normal Speech and Movement: speech and movement normal Mood: congruent mood Affect: normal affect Time Spent with Patient providing and/or coordinating discharge services: Less than 30 minutes Exam Physical Exam Vital signs: Temp Pulse Resp BP 98.4 F 88 16 119/72 10/03/22 20:11 10/03/22 20:00 10/03/22 20:00 10/03/22 20:00 Vital Signs Reviewed: Yes Constitutional Constitutional: no acute distress, average body habitus and cooperative HEENT Exam HEENT Exam: Normal Neck Exam Neck Exam: Normal (normal visual inspection) Respiratory Exam Respiratory Exam: Normal Cardiovascular Exam Cardiovascular Exam: Normal Abdominal Exam Abdomen: Other (normal exam) Fundal Exam Fundus: Below Umbilicus and Firm Comment: small lochia noted. KH Rectal Exam Rectal Exam: Not Done Exam Perineum: Intact and Normal Extremities Exam Extremity Exam: Normal (denies calf tenderness) and Full ROM Back/Spine/Pelvis Exam Back Exam: Normal Skin Exam Skin Exam: Normal Neurological Exam Neurological Exam: Normal Psychiatric Exam Psychiatric Exam: Normal PFSH All Active Problems Lactating mother (Acute) care following vaginal delivery (Acute) (Acute) Medical History Encounter for vaginal delivery Former tobacco use vaping. Quit with Pharyngitis, acute Family History Maternal Aunt Breast cancer Maternal Grandmother Ovarian cancer Social History Smoking/Tobacco Use Status: Former Tobacco Use Smoking risk assessment performed?: Yes Alcohol Intake: never Drug use: Never Substance use type: does not use Do you feel safe at home: Yes Do you feel safe in your relationship?: Yes History History 1 Para 0 Hx # Term Pregnancies 0 Multiple births 0 Hx # Pregnancies 0 Ectopic pregnancies 0 AB induced 0 Hx Number of Living Children 0 AB spontaneous 0 DS: Data Vitals/I&O Vitals and I&O: Vital Signs Temperature 98.4 F 10/03/22 20:11 Temperature Source Tympanic 10/02/22 06:05 Temperature Source Oral 10/03/22 20:00 Pulse 88 10/03/22 20:00 Pulse Rhythm Regular 10/03/22 07:45 Respiratory Rate 16 10/03/22 20:00 Blood Pressure 119/72 10/03/22 20:00 Blood Pressure Mean 87 10/03/22 20:00 Oxygen Delivery Method Room Air 10/02/22 06:21 Oxygen Flow Rate 0 10/02/22 06:21 Pain Level 4 10/03/22 21:12
[2022-10-04 08:00] VITALS: BP 109/63; PULSE 76; TEMP 37
[2022-10-04] MEDS: Dibucaine 1% 28 GM TUBE TP (09:10)
[2022-10-04] MEDS: Hamamelis Leaf/Glycerin 100 EACH BOX PR (09:10)
== END 2022-10-04 10:25 | disposition home or self-care (01) | DRG 768 ==
PROVIDERS: Admitting Provider Advanced Practice Midwife; Visit Provider Advanced Practice Midwife
DX: O71.82 Other specified trauma to perineum and vulva (principal); Z37.0 Single live birth; Z3A.39 39 weeks gestation of pregnancy
CPT/HCPCS: 36415; 85027; 86850; 86900; 86901; J2590; J3490

== ENCOUNTER 2023-12-02 12:35 | Emergency (ER) | payer MEDICAID, SELFPAY ==
[2023-12-02 12:42] VITALS: BP 100/58; PULSE 74; RESP 16; TEMP 35.7; O2SAT 100
--- NOTE | 2023-12-02 14:34 | ED.GENADUL_ITS ---
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 Primary Care Provider: Unknown,Unknown ED Provider: Antione Hart Home Meds and New Rx's Prescriptions: No Action ParaGard T 380A 380 square mm intrauterine device 1 device intrauterine ONCE Rx Instructions: as a single dose sertraline 50 mg tablet 50 mg PO DAILY Qty: 30 3RF ibuprofen 600 mg Tablet 600 mg PO Q6H PRN PRNQty: 90 0RF Discharge Instructions Instructions: Bleeding Between Periods Additional Instructions: Please follow-up with women's wellness early next week, please return on Monday for pelvic ultrasound call phone number at top of diagnostic imaging sheet in morning to determine best time for imaging. Please return to the emergency department for any worsening symptoms HPI General Date/Time Provider Initiated Documentation: 12/02/23 12:52 . HPI Narrative: 28-year-old female history of IUD presents with vaginal bleeding over the last week, soaking through multiple tampons over the last hour, endorses abdominal cramping and lightheadedness. Did not have a positive test but was concerned that she might be . History of chlamydia in the past with treatment. Related Data Home Medications ?Medication ?Instructions ?Recorded ?Confirmed ibuprofen 600 mg tablet 600 mg PO Q6H PRN PRN #90 tabs 10/04/22 12/02/23 copper 380 square mm intrauterine 1 device intrauterine ONCE 01/13/23 12/02/23 device (ParaGard T 380A) sertraline 50 mg tablet 50 mg PO DAILY #30 tabs 08/02/23 12/02/23 Previous Rx's ?Medication ?Instructions ?Recorded ibuprofen 600 mg tablet 600 mg PO Q6H PRN PRN #90 tabs 10/04/22 sertraline 50 mg tablet 50 mg PO DAILY #30 tabs 08/02/23 Allergies Allergy/AdvReac Type Severity Reaction Status Date / Time soap Allergy Hives Verified 08/02/23 15:01 General 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: 3 Exam Narrative Exam Narrative: Alert oriented interactive Normal skin color and conjunctiva Moist mucous membranes tongue secretions normal voice Nontachycardic No tachypnea Moving all extremities ambulatory without assistance Course Vital Signs Vital signs: Vital Signs Temperature 35.7 C L 12/02/23 12:42 Pulse 74 12/02/23 12:42 Respiratory Rate 16 12/02/23 12:42 Blood Pressure 100/58 L 12/02/23 12:42 Pulse Oximetry 100 12/02/23 12:42 Temperature 35.7 C L 12/02/23 12:42 Temperature Source Temporal Artery Scan 12/02/23 12:42 Pulse 74 12/02/23 12:42 Respiratory Rate 16 12/02/23 12:42 Respiratory Effort Normal, Non-Labored 12/02/23 14:20 Blood Pressure 100/58 L 12/02/23 12:42 Pulse Oximetry 100 12/02/23 12:42 Pain Level 4 12/02/23 14:20 Lab/Test Results Lab/Test Results: POC- Test(urine) Negative Medical Decision Making 28-year-old female history of IUD presents with vaginal bleeding over the last week, soaking through multiple tampons over the last hour, endorses abdominal cramping and lightheadedness. Did not have a positive test but was concerned that she might be . History of chlamydia in the past with treatment. Hemodynamically stable neurologically intact afebrile nontoxic. Nonperitoneal. Prepping patient for pelvic examination. Will obtain basic labs quant hCG type and screen coags. Consider dysfunctional uterine bleeding versus IUD migration versus normal menstrual period versus miscarriage versus less likely ectopic given negative test history and physical lower suspicion for STI or pelvic inflammatory disease. Disposition pending labs and pelvic examination. Will likely schedule patient for outpatient ultrasound on Monday when available and women's wellness appointment 15: 13 normal labia majora and minora without lesions laceration or discharge; scan dark blood in vault coming from cervix; no cervical lesions appreciated; IUD string and inferior aspect of IUD body visualized at os; no appreciable vaginal or cervical lacerations or lesions; patient resting actively no acute distress hemodynamically stable no signs of anemia. No signs of infection. Consider low-lying/migrating IUD versus reinitiation of patient's menstrual flow 1 year after last delivery no evidence of infection or laceration. Given asymptomatic with minimal bleeding patient counseled to follow-up closely with women's wellness will place referral for early next week, will also schedule patient for ultrasound on Monday, given strict return precautions to return to the emergency department for any worsening symptoms Quality:SDOH Health Related Social Needs: No Data to Display PFSH All Active Problems (Updated 12/02/23 @ 15:50 by Antione Hart MD) Vaginal bleeding (Acute) depression (Acute) Intrauterine device surveillance (Acute) Encounter for insertion of ParaGard IUD (Acute) General counseling for initiation of other contraceptive measures (Acute) Lactating mother (Acute) care following vaginal delivery (Acute) Medical History Encounter for vaginal delivery Former tobacco use vaping. Quit with Pharyngitis, acute Family History Maternal Aunt Breast cancer Maternal Grandmother Ovarian cancer Social History Smoking/Tobacco Use Status: Former Tobacco Use Smoking risk assessment performed?: Yes Alcohol Intake: never Drug use: Never Substance use type: does not use Housing: apartment Do you feel safe at home: Yes Do you feel safe in your relationship?: Yes Additional Social history: and child at side, very content History History 2 1 Para 1 Hx # Term Pregnancies 1 Multiple births 0 Hx # Pregnancies 0 Ectopic pregnancies 0 AB induced 0 Hx Number of Living Children 1 AB spontaneous 0 Past Pregnancies Del. Date GA/Weeks # Preg Succ Route Wgt Sex Labor Lgth Anesth esia Location [facility] 10/02/22 39 No Yes vaginal 4175.006 g Male 10hrs 28min HUMBLE Silva Delivery Date: 10/02/22 Last Updated by: GREGORY Fu; Tight shoulder, delivered easily with Olegario positioning; R labial lac., repaired with 3 stitches
[2023-12-02 15:01] LABS: Abs Immature Grans 0.02 10^3/uL (0.0-0.06); Absolute Basophil Count 0.08 10^3/uL (0.0-0.2); Absolute Eosinophil Count 0.28 10^3/uL (0.0-0.7); Absolute Lymphocyte Count 2.56 10^3/uL (1.2-3.4); Absolute Monocyte Count 0.68 10^3/uL (0.1-0.8); Eosinophils % 3.4 %; HCT 40.7 % (36.0-46.0); HGB 13.8 g/dL (11.2-15.7); Immature Grans % 0.2 %; Lymphocytes % 31.1 %; MCH 31.9 pg (27.0-33.0); MCHC 33.9 % (32.0-36.0); MCV 94 fL (80-95); MPV 10.5 fL (8.0-11.0); Monocytes % 8.3 %; Platelet Count 271 10^3/uL (130-400); RBC 4.32 10^6/uL (3.93-5.22); RDW 11.2 % (11.7-14.6); RDW-SD 38.9 fL; WBC 8.22 10^3/uL (4.4-10.8)
[2023-12-02 15:03] LABS: Bilirubin Negative (Negative); Blood Large (Negative); Clarity Sl Cloudy (Clear); Glucose Negative (Negative); Ketones Negative (Negative); Leukocyte Esterase Negative (Negative); Nitrite Negative (Negative); Specific Gravity 1.015 (1.005-1.025); Urobilinogen 0.2 mg/dL (Up to 0.2); pH 8.5 (5-8)
[2023-12-02 15:15] LABS: INR 1.1 (0.9-1.1); Prothrombin Time 10.8 sec (9.1-11.1)
[2023-12-02 15:19] LABS: ALT 15 U/L (14-59); AST 16 U/L (15-37); Albumin 4.2 g/dL (3.4-5.0); Alkaline Phosphatase 78 U/L (46-116); BUN 9 mg/dL (7-18); Bilirubin, Total 0.56 mg/dL (0.2-1.0); CREATININE 0.7 mg/dL (0.55-1.02); Calcium 8.4 mg/dL (8.5-10.1); Chloride 106 mmol/L (98-107); Estimated GFR 121.49 (mL/min/1.73m2); Glucose 90 mg/dL (74-106); Potassium 3.9 mmol/L (3.5-5.1); Sodium 141 mmol/L (136-145); Total Protein 7.4 g/dL (6.4-8.2)
[2023-12-02 15:27] LABS: HCG Quant, Pregnancy < 1 mIU/mL (1-3)
[2023-12-02 15:28] LABS: Bacteria Negative HPF (Negative); C & S Indicated? No; Casts Negative LPF (Negative); Crystals Negative HPF (Negative); Epithelial Cells Few HPF (Negative); Mucus Negative (Negative); RBC >50 HPF (0-2); WBC 0-2 HPF (0-5)
[2023-12-02 15:31] LABS: Anion Gap 8.7 mmol/L (3-11); CO2 26.3 mmol/L (21.0-32.0)
[2023-12-02 15:54] VITALS: BP 110/70; PULSE 57; RESP 16; TEMP 36.6; O2SAT 99
--- NOTE | 2023-12-02 16:37 | NUR.NOTE ---
Referral given to Care Management to Assist the Pt in obtaining an appointment with Neurosurgery in [facility] in 6 weeks.
--- NOTE | 2023-12-02 16:44 | NUR.NOTE ---
Referral faxed to [facility] for a follow up to vaginal bleeding sometime this week. Nursing Note:
== END 2023-12-02 15:59 | disposition home or self-care (01) ==
PROVIDERS: Emergency Provider Emergency Medicine
DX: R10.84 Generalized abdominal pain (principal); R42 Dizziness and giddiness; N93.9 Abnormal uterine and vaginal bleeding, unspecified
CPT/HCPCS: 36415; 80053; 81025; 86850; 86900; 86901; 99283; 81003; 81015; 84702; 85025; 85610; 85730

== ENCOUNTER 2024-02-19 02:06 | Outpatient (CLI) | payer SELFPAY ==
[2024-02-19 12:22] LABS: Panorama Kit Sent via Fed Ex
[2024-02-19 12:33] LABS: Abs Immature Grans 0.03 10^3/uL (0.0-0.06); Absolute Basophil Count 0.03 10^3/uL (0.0-0.2); Absolute Eosinophil Count 0.13 10^3/uL (0.0-0.7); Absolute Lymphocyte Count 1.98 10^3/uL (1.2-3.4); Absolute Neutrophil Count 5.78 10^3/uL (1.2-6.7); Basophils % 0.4 %; Eosinophils % 1.6 %; HCT 37.5 % (36.0-46.0); HGB 12.9 g/dL (11.2-15.7); Immature Grans % 0.4 %; Lymphocytes % 23.7 %; MCH 32.1 pg (27.0-33.0); MCHC 34.4 % (32.0-36.0); MCV 93 fL (80-95); MPV 10.5 fL (8.0-11.0); Monocytes % 4.8 %; Neutrophils % 69.1 %; Platelet Count 220 10^3/uL (130-400); RBC 4.02 10^6/uL (3.93-5.22); RDW-SD 40.8 fL; WBC 8.35 10^3/uL (4.4-10.8)
[2024-02-20 08:34] LABS: Hepatitis B Surface Ag Negative (Negative)
[2024-02-20 09:02] LABS: HIV-1/2 Ag & Ab Screen Negative (Negative)
[2024-02-20 09:11] LABS: Hepatitis C Ab w Rflx HCV PCR Negative (Negative)
[2024-02-20 10:10] LABS: Rubella IgG Ab (UVM) Positive (See Note)
[2024-02-20 10:13] LABS: Varicella IgG Antibody Positive (See Note)
[2024-02-21 19:14] LABS: Syphilis IgG w/Reflex Nonreactive (Nonreactive)
== END 2024-02-19 02:07 | disposition home or self-care (01) ==
LOC: LBO 02:06
PROVIDERS: Advanced Practice Midwife; Visit Provider Advanced Practice Midwife
DX: Z34.91 Encounter for supervision of normal pregnancy, unspecified, first trimester (principal)
CPT/HCPCS: 36415; 86787; 86803; 86850; 86900; 86901; 87340; 87389; 85025; 86762; 86780

== ENCOUNTER 2024-02-19 11:40 | Outpatient (REF) | payer SELFPAY ==
[2024-02-19 12:48] LABS: Lab Add On Test DONE
[2024-02-19 14:33] LABS: *AMPHETAMINES SCREEN URINE Negative (Negative); *BARBITURATES SCREEN URINE Negative (Negative); *BENZODIAZEPINES SCREEN URINE Negative (Negative); Cannabinoids THC Positive (Negative); Cocaine Screen,Urine Negative (Negative); METHADONE URINE SCREEN Negative (Negative); OPIATES URINE SCREEN Negative (Negative)
[2024-02-19 14:37] LABS: Tricyclic Antidepressants Negative (Negative)
[2024-02-20 11:46] LABS: Fentanyl Scr w/Rfx Confirm Negative ng/mL (<1)
[2024-02-20 12:00] LABS: Chlamydia Result Negative (Negative); GC Result Negative (Negative)
[2024-02-23 11:04] LABS: Buprenorphine Negative ng/mL (Cutoff: 5.0); Norbuprenorphine Negative ng/mL (Cutoff: 2.5)
== END 2024-02-19 11:41 | disposition home or self-care (01) ==
LOC: LBN 11:40
PROVIDERS: Visit Provider Advanced Practice Midwife
DX: Z34.90 Encounter for supervision of normal pregnancy, unspecified, unspecified trimester (principal); F12.91 Cannabis use, unspecified, in remission
CPT/HCPCS: 80307; 80348; 87491; 87591; 87086; 87480; 87510; 87660

== ENCOUNTER 2024-06-14 00:38 | Outpatient (CLI) | payer MEDICAID, SELFPAY ==
[2024-06-14 12:37] LABS: HCT 35.3 % (36.0-46.0); HGB 12.3 g/dL (11.2-15.7); MCH 32.6 pg (27.0-33.0); MCHC 34.8 % (32.0-36.0); MCV 94 fL (80-95); MPV 10.3 fL (8.0-11.0); Platelet Count 280 10^3/uL (130-400); RBC 3.77 10^6/uL (3.93-5.22); RDW 11.8 % (11.7-14.6); RDW-SD 39.9 fL; WBC 13.96 10^3/uL (4.4-10.8)
[2024-06-14 12:47] LABS: Glucose,1 Hr (Glucola) 74 mg/dL (80-140)
== END 2024-06-14 00:39 | disposition home or self-care (01) ==
PROVIDERS: Visit Provider Advanced Practice Midwife
DX: Z34.92 Encounter for supervision of normal pregnancy, unspecified, second trimester (principal)
CPT/HCPCS: 36415; 82950; 85027

== ENCOUNTER 2024-07-11 09:35 | Outpatient (REF) | payer MEDICAID, SELFPAY ==
[2024-07-11 10:35] LABS: *AMPHETAMINES SCREEN URINE Negative (Negative); *BARBITURATES SCREEN URINE Negative (Negative); *BENZODIAZEPINES SCREEN URINE Negative (Negative); Cocaine Screen,Urine Negative (Negative); METHADONE URINE SCREEN Negative (Negative); OPIATES URINE SCREEN Negative (Negative)
[2024-07-11 10:51] LABS: Tricyclic Antidepressants Negative (Negative)
[2024-07-11 11:16] LABS: Cannabinoids THC Positive (Negative)
[2024-07-12 11:40] LABS: Fentanyl Scr w/Rfx Confirm Negative ng/mL (<1)
[2024-07-17 07:51] LABS: Buprenorphine Negative ng/mL (Cutoff: 5.0); Norbuprenorphine Negative ng/mL (Cutoff: 2.5)
== END 2024-07-11 09:36 | disposition home or self-care (01) ==
LOC: LBN 09:35
PROVIDERS: Visit Provider Advanced Practice Midwife
DX: Z34.93 Encounter for supervision of normal pregnancy, unspecified, third trimester (principal)
CPT/HCPCS: 80307; 80348

== ENCOUNTER 2024-08-08 10:57 | Outpatient (REF) | payer MEDICAID, SELFPAY | END 2024-08-08 10:58 | disposition home or self-care (01) | LOC: LBN 10:57 | PROVIDERS: Visit Provider Advanced Practice Midwife | DX: Z34.93 Encounter for supervision of normal pregnancy, unspecified, third trimester (principal) | CPT/HCPCS: 87081 ==

== ENCOUNTER 2024-08-29 20:54 | Inpatient (IN) | payer MEDICAID, SELFPAY ==
[2024-08-29] VITALS (8 sets, daily range): BP systolic 112–137; BP diastolic 55–85; PULSE 78–101; RESP 16–17; TEMP 36.6–37.2; O2SAT 97–99
--- NOTE | 2024-08-29 20:56 | W.PM.OBHPL1 ---
Date of service: 08/29/24 Time of Service: 20:56 Assessment and Plan Assessment and plan (1) Normal labor: Status: Acute Assessment and plan: A: 28 yo @ 38+6 wks, spontaneous onset labor Intact membranes, GBS negative Low risk for SD and PPH, category 1 tracing P: Admit to L&D, CBC, T&S Pt is planning unmedicated and wants to use the tub Expectant management, comfort measures as pt desires Anticipate OB-HPI Labor/Delivery History of Present Illness Reason for Visit: R/O LABOR Chief Complaint: Uterine Contractions (contractions became consistent around 1800, increased vaginal discharge without bleeding, no vomiting.). CHELSEY Calculator Estimated Delivery Date Method Current WG Current Estimate 09/06/24 Ultrasound #1 38w 6d Other Estimates 08/29/24 Conception 40w 0d History of Present Expected Delivery Route/Plan - CNM FOB/partner - Virgen Arreola (2nd child together) -Ida Arreola Support team: FOB, friend Tootie Hopes for waterbirth this time, will delay entry into tub until transition GBS negative Specific Issues/Plan 1. cfDNA- low risk x6, female, CF previously neg, AFP declined. 2. Depression, anxiety & PPD, OCD with hand washing, sertraline 50 mg in the past, no meds currently- referral to Sophia Harkins, sees her intermittently for counseling 2a. Picking up Prozac 20mg today 3. 5-Ps pos for past marijuana use - UDS-pos. THC. stopped at 35wks,28wk UDS THC+, Family Care plan done 08/29 Assessment: History Reviewed & Current Review of Systems Narrative: ROS noncontributory other than HPI PFSH All Active Problems (Updated 08/29/24 @ 21:02 by Lorena Rice) Normal labor (Acute) Need for financial support (Acute) Marijuana use (Acute) (Acute) Medical History (Updated 08/29/24 @ 21:02 by Lorena Rice) History of marijuana use depression Former tobacco use vaping. Quit with Pharyngitis, acute Family History (Updated 06/14/24 @ 11:49 by Marianela Apple CNM) Maternal Aunt Breast cancer Maternal Grandmother , 70s Ovarian cancer Mother Breast cancer Maternal Grandfather , 70s Cancer skin CA Social History (Updated 02/19/24 @ 12:22 by Marianela Apple CNM) Smoking/Tobacco Use Status: Former Tobacco Use tobacco type: cigarettes Smoking risk assessment performed?: Yes Alcohol Intake: never Details: quit smoking with first Drug use: Never Substance use type: former substance user Date of last use: marijuana Housing: apartment Do you feel safe at home: Yes Do you feel safe in your relationship?: Yes Additional Social history: and child at side, very content History History 2 Para 1 Hx # Term Pregnancies 1 Multiple births 0 Hx # Pregnancies 0 Ectopic pregnancies 0 AB induced 0 Hx Number of Living Children 1 AB spontaneous 0 Past Pregnancies Del. Date GA/Weeks # Preg Succ Route Wgt Sex Labor Lgth Anesthesia Location Prov Complic 10/02/22 39 No Yes vaginal 9 lb 3.269 oz Male 10hrs 28min HUMBLE Silva Delivery Date: 10/02/22 Last Updated by: Halima Fraga, GREGORY Moon; Tight shoulder, delivered easily with Olegario positioning; R labial lac., repaired with 3 stitches Meds Allergies and Home Medications Allergies Allergy/AdvReac Type Severity Reaction Status Date / Time soap Allergy Hives Verified 08/28/24 10:00 Home Medications ?Medication ?Instructions ?Recorded ?Confirmed ?Type ferrous sulfate 325 mg (65 mg 325 mg PO DAILY #60 tabs 01/17/24 08/28/24 Rx iron) tablet vits no.126-ferrous fum 1 tab PO DAILY 01/17/24 08/28/24 History 28 mg iron-folic acid 800 mcg tablet (Classic ) fluoxetine 20 mg capsule 20 mg PO DAILY #14 caps 08/15/24 08/28/24 Rx Exam Physical Exam Vital signs: Pulse BP 78 130/85 08/29/24 20:38 08/29/24 20:38 Vital Signs Reviewed: Yes Constitutional Constitutional: mild distress, average body habitus and cooperative Detailed Labor and Delivery Exam Dilation: 7 Effacement (%): 100 station: -2 Cervix position: anterior Consistency: soft Amniotic Membrane Status: Intact (large forebag) Contraction Frequency(min): Q2-4 Contraction Duration(sec): 60 Contraction Intensity: Moderate/Strong Fetus A Heart Rate Baseline: 135 Monitor Accelerations: 15 X 15 Monitor Decelerations: None Variability: Moderate (6-25 BPM) Categories: Category I Est. Weight: 8 lb 7.805 oz Est. Weight: 3850 gms HEENT Exam HEENT Exam: Normal Neck Exam Neck Exam: Normal Chest/Brest/Axilla Exam Chest Exam: Normal Breast Exam Breast Exam: Not Done Respiratory Exam Respiratory Exam: Normal Cardiovascular Exam Cardiovascular Exam: Normal Abdominal Exam Abdominal Exam: Normal (gravid nontender) Rectal Exam Rectal Exam: Normal Exam Exam: Normal Extremities Exam Extremities Exam: Normal Back/Spine/Pelvis Exam Back Exam: Normal Pelvis Adequate: Yes (proven to 9 lb) Skin Exam Skin Exam: Normal Neurological Exam Neurological Exam: Normal Psychiatric Exam Psychiatric Exam: Normal Results Results Group Beta Strep: Negative Blood Type: O+ Rubella Status: Immune Varicella Immunity: Immune Risk Assessment Risk for Shoulder Dystocia Historical/Initial OB: NEGATIVE FOR: Pelvic Abnormality, Pre- BMI>30, Previous Shoulder Dystocia or Previous Macrosomia 36 Weeks: NEGATIVE FOR: Current Gestational DM, EFW>4500gms or Maternal Weight Gain>40lbs Increased Risk?: No Delivery Plan @ 36wks: Risk for Pre-Eclampsia Date Initiated/Initials: not indicated.KM Yes, if one or more: NEGATIVE FOR: Hx Pre-E/Gest HTN, Chronic HTN, Multiple Gestation, Pre-gestational DM, Renal Disease, Systemic Lupus or APA Syndrome Yes, if 2 or more: NEGATIVE FOR: Nulliparity, Age>= 35 yrs, >10yr btwn pregnancies, BMI>30, ethinicty, Mother/Sister w/ Pre-E or Previous IUGR Risk for Post- Hemorrhage Initial: NEGATIVE FOR: Multiple Gestation, Previous PPH, Known Clotting Deficiency, Grand Multiparity or Anticoagulation 36 Weeks: NEGATIVE FOR: Anemia, hgb<10, Low platelets(thrombocytopenia), Gestational HTN or Pre-E, Polyhydraminios or EFW>4500gms At Risk?: No Counseled re: Active Management: Yes Risks Reviewed Risks Reviewed Upon Admission: Yes
--- NOTE | 2024-08-29 21:00 | W.OBNST ---
Date of service: 08/29/24 Time of Service: 21:00 NST Evaluation Reason for NST Reasons for Nonstress Test: OTHER, SEE COMMENT Reason for NST Other: Rule out labor Gestational Age Gestational Age in Weeks and Days: 38 Weeks and 6Days Test and Monitor Explained Test/Monitor Explained: Test Explained, Monitor Explained and Patient Verbalized Understanding Vital Signs Blood Pressure: 130/85 Pulse: 78 Temperature: 98.4 F NST Information Date on Monitor: 08/29/24 Time on Monitor: 20:35 Date off Monitor: 08/29/24 Time off Monitor: 21:00 Total Time on Monitor: 25 NST Interventions: PO Hydration Contraction Frequency: 6 NST Evaluation Patient States Movement: Present FHR Baseline: 135 Variability: Moderate 6-25 bpm Accelerations: 15x15 Decelerations: None NST Results: Reactive Note Ultrasound Done: N/A. NST Note Note: admit for labor NST Reviewed and Verified by: Lorena Rice
[2024-08-29 21:23] LABS: HCT 37.7 % (36.0-46.0); HGB 12.6 g/dL (11.2-15.7); MCH 29.5 pg (27.0-33.0); MCHC 33.4 % (32.0-36.0); MCV 88 fL (80-95); MPV 11.2 fL (8.0-11.0); Platelet Count 296 10^3/uL (130-400); RBC 4.27 10^6/uL (3.93-5.22); RDW 12.5 % (11.7-14.6); RDW-SD 39.9 fL; WBC 16.35 10^3/uL (4.4-10.8)
[2024-08-29 22:40] LABS: *AMPHETAMINES SCREEN URINE Negative (Negative); *BARBITURATES SCREEN URINE Negative (Negative); *BENZODIAZEPINES SCREEN URINE Negative (Negative); Cannabinoids THC Negative (Negative); Cocaine Screen,Urine Negative (Negative); METHADONE URINE SCREEN Negative (Negative); OPIATES URINE SCREEN Negative (Negative)
[2024-08-29 22:42] LABS: Tricyclic Antidepressants Negative (Negative)
[2024-08-29] MEDS: Oxytocin 10 UNITS/ML VIAL IM (23:11)
[2024-08-29] MEDS: miSOPROStol 200 MCG TAB 600 MCG SL (23:20)
[2024-08-29] MEDS: Benzocaine 20% 60 ML CAN (23:30)
[2024-08-29] MEDS: Methylergonovine 0.2 MG/ML VIAL IM (23:31)
--- NOTE | 2024-08-29 23:50 | OBVDS_ITS ---
Date of service: 08/29/24 Time of Service: 23:50 OB Labor/ Delivery Information Baby A Delivery Delivery Method: Spontaneaous Presentation: Cephalic Cephalic Position: Vertex Vertex Position: Right Occipital Anterior Breech Position: N/A Cord Description-Baby A: 3 Vessels, Nuchal Cord and Reduced (overhead) Amniotic Fluid: Clear Estimated Blood Loss: 750 ml Delivery Outcome: Liveborn Transferred: Remains with Mother Note: Pt entered tub when her labor intensified and she soon progressed to feeling urges to bear down. She turned from supine to hands and knees in the tub, water temp @ 100 F, SROM of clear fluid with maternal efforts, 2nd stage huddle completed. FHT's 140-150's with doppler, anterior lip reduced manually over descending head, of vigorous female over intact perineum. Loose nuchal cord reduced over head and shoulders delivered easily, passed under maternal leg at water's surface and into mother's arms who then was assisted to sitting position. Cord clamped and cut by FOB after pulsations ceased, Wilhelm placenta delivered intact with 3VC, pitocin 10 units given IM, cord blood collected. Pt remained in tub for several minutes resting with infant skin to skin, then handed to FOB's mother while pt was assisted out of tub and into bed. Lochia slow but persistent, fundus firmed with massage, moderate amt of clots manually evacuated from lower segment, misoprostel 600 mcg PO given and repair to right labia completed under topical Hurricaine aerosol anesthetic, perineum intact. Bleeding intermittently trickling, straight cath done for 100 cc clear yellow urine, no clots found on repeat vaginal sweep, no additional lacerations visualized, methergine 0.2 IM given as precaution with EBL @ 750 (400 estimated in tub, 350 ml blood in underdrape). Pt remains hemodynamically stable, lochia slowed to scant with very firm fundus below umbilicus, strong family bonding observed. Apgars 9/9, weight 3775 gms. Providers Nurse Deputy Chief Sheriff: Lorena Rice Nurse: Catalina Nye Nurse: Consuelo Rice Labor/Delivery Information Number of Babies in Womb: 1 Steroids Given: None Reason Steroids Not Administered: N/A Group Beta Strep: N/A Antibiotics Administered: No Rubella Status: Immune Blood Type: O+ Varicella Immunity: Immune Medication in Delivery: none Maternal Complications: None Shoulder Dystocia: No Stages of Labor Onset of Labor Date: 08/29/24 Onset of Labor Time: 07:00 ROM Baby A: 08/29/24 ROM Baby A: 22:54 Delivery Date-Baby A: 08/29/24 Delivery Time-Baby A: 23:03 Placenta Delivery Date-Baby A: 08/29/24 Placenta Delivery Time-Baby A: 23:09 Labor-Stage 3 Duration: 6 minutes Total Length of Labor-Baby A: 16 hours and 3 minutes Placenta Cultured: No Baby A Infant Gender: Female Gestational Status: Early Term (37-38.6 wks) Gestational Age in Weeks/Days: 38 Weeks and 6 Days weight: 8 lb 5.159 oz Weight Comment: 3775 gms Length-Baby A: 21 in Score-1 Minute Interval(Baby A) Heart Rate-1 minute: 100 BPM or Greater Respiratory Effort- 1 minute: Spontaneous/Strong Cry Muscle Tone-1 minute: Active Movement Reflex Response-1 minute: Prompt Response Color-1 minute: Bluish Hands or Feet Total Score-1 minute: 9 Score-5 Minute Interval(Baby A) Heart Rate- 5 minute: 100 BPM or Greater Respiratory Effort-5 minute: Spontaneous/Strong Cry Muscle Tone-5 minute: Active Movement Reflex Response-5 minute: Prompt Response Color-5 minute: Bluish Hands or Feet Total Score- 5 minute: 9
[2024-08-30] VITALS (9 sets, daily range): BP systolic 102–136; BP diastolic 68–85; PULSE 71–94; RESP 16–17; TEMP 36–37.4; O2SAT 96–99
[2024-08-30] MEDS: Ibuprofen 600 MG TAB PO ×3 (00:10→12:53)
[2024-08-30] MEDS: Acetaminophen 325 MG TAB 650 MG PO ×5 (00:10→21:21)
[2024-08-30] MEDS: Dibucaine 1% 28 GM TUBE TP (00:11)
[2024-08-30] MEDS: Hamamelis Leaf/Glycerin 100 EACH BOX PR ×2 (00:11→17:07)
[2024-08-30] MEDS: FLUoxetine 20 MG CAP PO (10:21)
[2024-08-31] MEDS: Acetaminophen 325 MG TAB 650 MG PO ×2 (06:32→11:17)
[2024-08-31 07:30] VITALS: BP 104/76; PULSE 78; RESP 16; TEMP 36.9; O2SAT 97
[2024-08-31] MEDS: FLUoxetine 20 MG CAP PO (08:12)
--- NOTE | 2024-08-31 11:11 | OBPPV_ITS ---
Date of service: 08/31/24 Time of Service: 11:11 Assessment and Plan Assessment and plan (1) Lactating mother: Status: Acute Assessment and plan: A: Stable PPD2, lactating mother P: Discharge to home with 2wk/6wk PP visits (2) Obsessive compulsive disorder: Status: Suspected Assessment and plan: A: Fluoxetine 20mg daily P: Rx refilled for 90-day supply, FU at 6wk visit about dosage, Psychiatrist apt in October. (3) Normal labor: Subjective Subjective Interval history: Feeling well, excited to get home today. is going well, nipples intact, latching well. Bleeding lightening. supportive at bedside. Happy with outcome, grateful for membrane sweep in office past week Patient comments: No complaints [place] baby status: Doing well, Nursing well and Rooming in [place] feeding status: Exclusively breast feeding Exam Physical Exam Vital signs: Temp Pulse Resp BP Pulse Ox 98.4 F 78 16 104/76 97 08/31/24 07:30 08/31/24 07:30 08/31/24 07:30 08/31/24 07:30 08/31/24 07:30 Constitutional Constitutional: average body habitus and cooperative HEENT Exam HEENT Exam: Normal Neck Exam Neck Exam: Normal Breast Exam Bilateral: Breast Exam: Normal and Soft Nipple Exam: Normal and Uninjured Respiratory Exam Respiratory Exam: Normal Cardiovascular Exam Cardiovascular Exam: Normal Abdominal Exam Abdomen: Diastasis (2FB) Rectal Exam Rectal Exam: Normal Exam Patient deferred: external exam Back/Spine/Pelvis Exam Back Exam: Normal Skin Exam Skin Exam: Normal Neurological Exam Neurological Exam: Normal Psychiatric Exam Psychiatric Exam: Normal Results Hemoglobin/Hematocrit: Hgb 12.6 g/dL (11.2-15.7) 08/29/24 21:10 Hct 37.7 % (36.0-46.0) 08/29/24 21:10 Abnormal Lab Findings: Abnormal Labs 08/29/24 21:10 WBC 16.35 H MPV 11.2 H
--- NOTE | 2024-08-31 11:15 | DSE_ITS ---
Date of service: 08/31/24 Time of Service: 11:15 DS: Diagnosis Discharge Diagnosis (1) Lactating mother: Status: Acute Asessment and Plan: Caring for baby independently. Pain is managed well with oral analgesics. Voiding without difficulty. well. A - stable mother and baby , Post day 2 P - Discharge to home. Routine post instructions. [facility]. (2) Obsessive compulsive disorder: Status: Suspected Discharge Plan Disposition Patient Disposition: Home Condition: Improving Discharge Details Reason For Visit: Labor Admit Date/Time: 08/29/24 20:54 Admit Provider: Lorena Rice Attending Provider: Lorena Rice Primary Care Provider: Unknown,Unknown Home Meds and New Rx's Prescriptions: No Action Classic 28 mg iron- 800 mcg tablet 1 tab PO DAILY ferrous sulfate 325 mg (65 mg iron) tablet 325 mg PO DAILY Qty: 60 5RF fluoxetine 20 mg capsule 20 mg PO DAILY Qty: 90 5RF ibuprofen 600 mg tablet 600 mg PO Q6H PRN (Reason: pain) Qty: 30 1RF acetaminophen 325 mg tablet 650 mg PO Q6H PRN (Reason: fever or pain) Qty: 30 1RF Discharge Instructions Stand Alone Forms: BC Instructions, BC Post Vaginal Deliver Activity:: Activity as Tolerated Equipment/Supplies:: No Equipment Needed Diet:: Normal Diet Discharge Orders Discharge Orders: Discharge Order (Routine); Ordered 08/31/24 Ordered By: Arlene Erazo OB:DS Summary Summary Vaginal Delivery Method: Spontaneaous Episiotomy Description: None Laceration Description: Other Laceration Extension: N/A Contraception Discussed Contraception Discussed: No, Infant Gender-Baby A: Female weight: 8 lb 5.159 oz Status at Discharge Functional status at discharge: independent ambulation Overall status at discharge: patient is back to baseline Mental Status: mental status grossly normal Speech and Movement: speech and movement normal Mood: congruent mood Affect: normal affect Quality:SDOH Health Related Social Needs: No Data to Display Exam Physical Exam Vital signs: Temp Pulse Resp BP Pulse Ox 98.4 F 78 16 104/76 97 08/31/24 07:30 08/31/24 07:30 08/31/24 07:30 08/31/24 07:30 08/31/24 07:30 Constitutional Constitutional: average body habitus and cooperative HEENT Exam HEENT Exam: Normal Neck Exam Neck Exam: Normal Breast Exam Bilateral: Breast Exam: Normal and Soft Respiratory Exam Respiratory Exam: Normal Cardiovascular Exam Cardiovascular Exam: Normal Abdominal Exam Abdomen: Diastasis (2FB) Rectal Exam Rectal Exam: Normal Exam Patient deferred: external exam Back/Spine/Pelvis Exam Back Exam: Normal Skin Exam Skin Exam: Normal Neurological Exam Neurological Exam: Normal Psychiatric Exam Psychiatric Exam: Normal PFSH All Active Problems Lactating mother (Acute) Need for financial support (Acute) Marijuana use (Acute) Medical History (Updated 08/31/24 @ 11:13 by Arlene Erazo CNM) Normal labor History of marijuana use depression Former tobacco use vaping. Quit with Pharyngitis, acute Family History (Updated 06/14/24 @ 11:49 by Marianela Apple CNM) Maternal Aunt Breast cancer Maternal Grandmother , 70s Ovarian cancer Mother Breast cancer Maternal Grandfather , 70s Cancer skin CA Social History (Updated 02/19/24 @ 12:22 by Marianela Apple CNM) Smoking/Tobacco Use Status: Former Tobacco Use tobacco type: cigarettes Smoking risk assessment performed?: Yes Alcohol Intake: never Details: quit smoking with first Drug use: Never Substance use type: former substance user Date of last use: marijuana Housing: apartment Do you feel safe at home: Yes Do you feel safe in your relationship?: Yes Additional Social history: and child at side, very content History History 2 Para 1 Hx # Term Pregnancies 1 Multiple births 0 Hx # Pregnancies 0 Ectopic pregnancies 0 AB induced 0 Hx Number of Living Children 1 AB spontaneous 0 Past Pregnancies Del. Date GA/Weeks # Preg Succ Route Wgt Sex Labor Lgth Anesth esia Location [facility] 10/02/22 39 No Yes vaginal 9 lb 3.269 oz Male 10hrs 28min HUMBLE Silva Delivery Date: 10/02/22 Last Updated by: GREGORY Fu; Tight shoulder, delivered easily with Olegario pos itioning; R labial lac., repaired with 3 stitches DS: Data Vitals/I&O Vitals and I&O: Vital Signs Temperature 98.4 F 08/31/24 07:30 Temperature 98.4 F 08/30/24 00:22 Temperature Source Oral 08/31/24 07:30 Pulse 78 08/31/24 07:30 Pulse 78 08/30/24 00:22 Pulse Rhythm Regular 08/31/24 07:30 Respiratory Rate 16 08/31/24 07:30 Respiratory Depth Normal 08/30/24 20:03 Blood Pressure 104/76 08/31/24 07:30 Blood Pressure 130/85 08/30/24 00:22 Blood Pressure Mean 85 08/31/24 07:30 Pulse Oximetry 97 08/31/24 07:30 Oxygen Delivery Method Room Air 08/29/24 21:24 Oxygen Flow Rate 0 08/29/24 21:24 Pain Level 4 08/31/24 07:30 Intake & Output 08/30/24 08/30/24 08/31/24 11:59 23:59 11:59 Output Total 700 / 700 Balance -700 / -700 Output: Urine 700 / 700 Other: Urine Color Yellow Yellow
[2024-08-31] MEDS: Ibuprofen 600 MG TAB PO (11:16)
== END 2024-08-31 11:35 | disposition home or self-care (01) | DRG 806 ==
LOC: BCD 20:59 → OBS 20:59
PROVIDERS: Admitting Provider Advanced Practice Midwife; Visit Provider Advanced Practice Midwife
DX: O99.324 Drug use complicating childbirth; Z37.0 Single live birth; O99.344 Other mental disorders complicating childbirth; Z3A.38 38 weeks gestation of pregnancy; F41.8 Other specified anxiety disorders; F12.90 Cannabis use, unspecified, uncomplicated; F42.9 Obsessive-compulsive disorder, unspecified; O69.81X0 Labor and delivery complicated by cord around neck, without compression, not applicable or unspecified; O70.0 First degree perineal laceration during delivery
CPT/HCPCS: 80307; 85027; 86850; 86900; 86901; J2003; J2210; J2590

== ENCOUNTER 2024-10-10 15:00 | Outpatient (REF) | payer MEDICAID, SELFPAY ==
--- NOTE | 2024-10-10 14:30 | PAPFT_PTH ---
PATIENT: Last Newell LOC: [facility] U#:[id number] AGE/SX: 29/F ROOM: RE10/10/[address]: Marianela Apple : 1995 BED: DIS: 10/10/2024 SPEC #: [id number] RECD: 10/10/24 17:39 STATUS: LARISSA REQ #: [id number] SUSANNAH: 10/10/24 14:[address]: Marianela Apple DEPT: [facility] Cytology RECD BY: Stacy Ferreira ENTERED: 10/10/24 17:39 SP TYPE: PAPFT FLO DR: Unknown,Unknown Tissues: 1 - CX/ENDOCX FOR PAP SMEARS Procedures: PAP THIN PREP/UVM Screening Comments: [id number]
== END 2024-10-10 15:01 | disposition home or self-care (01) ==
LOC: LBN 15:00
PROVIDERS: Visit Provider Advanced Practice Midwife
DX: Z39.2 Encounter for routine postpartum follow-up (principal)
CPT/HCPCS: 88142; 87480; 87510; 87660